=== PATIENT | female | born 1980 | race Caucasian/White ===

== ENCOUNTER 2022-03-26 18:28 | Emergency (ER) | payer OTHER ==
[~2022-03-26] VITALS: Ht 154.9 cm; Wt 61.2 kg
[2022-03-26] MEDS ORDERED: CLARITIN10 M1 (19:08)
[2022-03-26] MEDS ORDERED: PROAIR HFA8.5 GM (19:08)
== END 2022-03-26 21:55 | disposition home or self-care (01) ==
LOC: ER 18:28
DX: T74.21XA Adult sexual abuse, confirmed, initial encounter (principal); Y93.89 Activity, other specified; Y92.039 Unspecified place in apartment as the place of occurrence of the external cause; Y99.9 Unspecified external cause status